=== PATIENT | female | born 1975 | race Caucasian/White ===

== ENCOUNTER 2017-12-14 16:26 | Inpatient (IN) | payer MEDICARE ==
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
[2017-12-14] MEDS ORDERED: LORazepam 1 MG TAB PO STA (17:48)
[2017-12-14 18:45] LABS: Amphetamine Screen,Urine Not Detected (NotDetected); Barbiturate Screen,Urine Not Detected (NotDetected); Benzodiazepines Screen,Urine Not Detected (NotDetected); Cocaine Screen,Urine Not Detected (NotDetected); Methadone Screen, Urine Not Detected (NotDetected); Opiate Screen,Urine Not Detected (NotDetected); Oxycodone Screen, Urine Not Detected (NotDetected); Phencyclidine Screen,Urine Not Detected (NotDetected); Tricyclic Antidepressant,Urine Not Detected (NotDetected); Urn Cannabinoid Scrn Not Detected (NotDetected)
[2017-12-14] MEDS ORDERED: IBUPROFEN 600 MG TAB PO STA (19:11)
[2017-12-14] MEDS ORDERED: NICOTINE 14MG/24HR PATCH TRANSDERM STA (21:37)
[2017-12-14 22:35] LABS: Appearance,Urine Clear (Clear); Bilirubin,Urine Negative (Negative); Blood,Urine Negative (Negative); Color,Urine Colorless; Glucose,Urine (UA) Negative (Negative); Ketones,Urine Negative (Negative); Leukocyte Esterase,Urine Negative (Negative); Nitrite,Urine Negative (Negative); Protein,Urine Negative (Negative); Specific Gravity,Urine 1.003 (1.001-1.035); Urobilinogen,Urine <2.0 mg/dL (<2.0)
[2017-12-14 22:51] LABS: Basophils # (A) 0.1 k/uL (0-0.2); Basophils % (A) 0 %; Eosinophils # (A) 0.2 k/uL (0-0.7); Eosinophils % (A) 2 %; HCT 37.6 % (34.0-46.0); HGB 12.4 gm/dL (11.4-16.0); Lymphocytes # (A) 3.9 k/uL (1.0-4.8); Lymphocytes % (A) 34 %; MCHC 33.1 g/dL (31.0-37.0); MCV 93.7 fL (80.0-100.0); Mean Platelet Volume 6.9; Monocytes # (A) 0.7 k/uL (0-1.0); Monocytes % (A) 6 %; Neutrophils # (A) 6.3 k/uL (1.3-7.7); Neutrophils % (A) 56 %; Platelet Count 316 k/uL (150-450); RBC 4.01 m/uL (3.80-5.40); RDW 14.4 % (11.5-15.5); WBC 11.3 k/uL (3.8-10.6)
[2017-12-14 23:14] LABS: Albumin 3.4 g/dL (3.5-5.0); Calcium 10.8 mg/dL (8.4-10.2); Potassium 3.8 mmol/L (3.5-5.1); Total Bilirubin 0.2 mg/dL (0.2-1.3); Total Protein 5.7 g/dL (6.3-8.2)
[2017-12-15] MEDS ORDERED: LORazepam 1 MG TAB PO STA (08:50)
[2017-12-15] MEDS ORDERED: MAGNESIUM HYDROXIDE 2,400 MG/10 ML CUP PO PRN (12:30)
[2017-12-15] MEDS ORDERED: MAG HYDROX/AL HYDROX/SIMETH 30 ML CUP PO PRN (12:30)
[2017-12-15] MEDS ORDERED: ZIPRASIDONE 20 MG VIAL IM PRN (12:30)
[2017-12-15] MEDS ORDERED: METOPROLOL TARTRATE 25 MG TAB PO STA (12:57)
[2017-12-15] MEDS: ACETAMINOPHEN TAB 325 MG TAB PO PRN ×2 (13:05→17:24)
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
[2017-12-15] MEDS ORDERED: hydrOXYzine PAMOATE 25 MG CAP PO PRN (15:48)
[2017-12-15] MEDS ORDERED: LORazepam 2 MG/ML INJ IV PRN (18:04)
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
[2017-12-15] MEDS: QUEtiapine 100 MG TAB PO SCH (20:43)
[2017-12-15] MEDS: METOPROLOL TARTRATE 25 MG TAB PO SCH (20:44)
[2017-12-15] MEDS: ATORVASTATIN 20 MG TAB PO SCH (20:44)
[2017-12-15] MEDS ORDERED: traZODone HCL 100 MG TAB PO SCH (21:00)
[2017-12-15] MEDS ORDERED: DIVALPROEX ER 500 MG TAB.ER.24H PO SCH (21:00)
[2017-12-16] MEDS: QUEtiapine 50 MG TAB PO SCH (08:59)
[2017-12-16] MEDS: METOPROLOL TARTRATE 25 MG TAB PO SCH ×2 (08:59→20:08)
[2017-12-16] MEDS: ATORVASTATIN 20 MG TAB PO SCH (08:59)
[2017-12-16] MEDS: NICOTINE 14MG/24HR PATCH TRANSDERM SCH (09:00)
--- NOTE | 2017-12-16 12:31 | P.PN ---
Progress Note - Text Progress Note Date: 12/16/17 Interval History: Patient is a 42-year-old female who was seen today, she was found in her room and came to the office. Patient states that the voices are still there and slightly decreased. Patient again cannot state what the voices are saying. She states that she still feeling suicidal and can't tell me why states she has no plan and is not sure if she wants to or not. Patient reports no side effects from the medication and states that her appetite is good. She states that she still feels depressed, with little interest to do things Mental Status: Appearance/Attitude: Patient is dressed in a hospital gown, makes intermittent eye contact and is cooperative. Behavior: Patient does not exhibit any psychomotor agitation or retardation. Speech/Language: Patient's speech is of normal rhythm and she speaks in a soft voice and is coherent Thought Process: Patient responds to questions with brief answers and little elaboration, no evidence of loose association or flight of ideas Thought Content: Patient states that she continues to hear voices and noises denies visual hallucinations, denies paranoid or delusional ideation. Patient states that she still feels depressed and suicidal, feeling tired. She states that her appetite is good Suicidal/Homicidal Ideation: Patient reports she still has suicidal thoughts with no plan can't tell me why she is feeling suicidal and denies current homicidal ideation Sensorium/Cognition: Patient is alert and oriented to person, place and time Mood/Affect: Patient's mood is apathetic and depressed her affect is blunted Insight/Judgment: Patient's insight and judgment are fair Assessment: Patient reports no side effects from the medication but continues to hear voices which she states are slightly decreased from yesterday and she states that she continues to feel suicidal with 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 Patient states she still depressed as little energy or interest to do things. She reports no side effects from the medication and its documented that the patient slept for 7 hours last night. Plan: Patient continues on Seroquel 50 mg in the morning and 150 at bedtime, her Depakote for seizure disorder with combined to a dose of 1000 mg extended release at bedtime. Patient continues to have Vistaril 25 mg 3 times a day on an as-needed basis for anxiety. Patient continues to require hospitalization to further stabilize her mood and target her psychotic symptoms.
[2017-12-16] MEDS: ACETAMINOPHEN TAB 325 MG TAB PO PRN (15:10)
[2017-12-16 19:04] LABS: Hemoglobin A1C 5.4 % (4.0-6.0)
[2017-12-16] MEDS: DIVALPROEX ER 500 MG TAB.ER.24H PO SCH (20:08)
[2017-12-16] MEDS: QUEtiapine 100 MG TAB PO SCH (20:08)
[2017-12-16] MEDS ORDERED: DIVALPROEX ER 500 MG TAB.ER.24H PO SCH (21:00)
[2017-12-17] MEDS: QUEtiapine 50 MG TAB PO SCH ×2 (09:48→14:29)
[2017-12-17] MEDS: NICOTINE 14MG/24HR PATCH TRANSDERM SCH (09:48)
[2017-12-17] MEDS: ATORVASTATIN 20 MG TAB PO SCH (09:48)
[2017-12-17] MEDS: METOPROLOL TARTRATE 25 MG TAB PO SCH ×2 (09:48→20:03)
--- NOTE | 2017-12-17 12:44 | P.PN ---
Progress Note - Text Progress Note Date: 12/17/17 Interval History: Patient is a 42-year-old female who is being seen today. Patient comes to the interview room, she states that she continues to feel depressed in the same stating that not a lot has changed. She states that she continues to have suicidal thoughts but no plan and states that she continues to have auditory hallucinations. Patient is unable to elaborate on any of her symptoms with any great detail. Patient states that she is sleeping and eating but is not attending any groups or activities. Mental Status: Appearance/Attitude: Patient is dressed in a hospital gown, makes intermittent eye contact and is cooperative Behavior: Patient does not exhibit any psychomotor agitation or retardation. Speech/Language: Patient speaks in normal volume and rhythm and she is coherent Thought Process: Patient responds to questions with brief and non-elaborative responses there is no evidence of flight of ideas or loose associations Thought Content: Patient states that she continues to hear voices and states it' s noises but can't discern what the voices are saying, denies any visual hallucinations and no delusions or paranoid ideation were elicited. Patient states that she continues to feel the same and doesn't feel a lot has changed since she was admitted. She states that she still feeling depressed and still having suicidal thoughts. Patient is sleeping and eating Suicidal/Homicidal Ideation: Patient states he continues to have suicidal thoughts but no plan or intent to act and no current homicidal ideation Sensorium/Cognition: Patient is alert and oriented to person, place, and time Mood/Affect: Patient's mood is depressed and her affect is blunted Insight/Judgment: Patient's insight and judgment are fair Assessment: Patient reports little change with the restart of her Seroquel, Depakote and Vistaril. She states that she still feels the same, still hearing voices still feeling depressed and still having suicidal thoughts. Patient is not attending groups or activities and slept for 7 hours last night. Plan: Patient will continue on Depakote 1000 mg extended release at bedtime for her seizure disorder, we'll increase her Seroquel to 50 mg twice a day and 200 mg at bedtime and continue Vistaril 25 mg as needed for anxiety. Patient will have a Depakote level drawn tomorrow morning. Patient continues to require hospitalization to further stabilize her mood and target her psychotic symptoms.
[2017-12-17] MEDS: ACETAMINOPHEN TAB 325 MG TAB PO PRN (14:29)
[2017-12-17] MEDS: DIVALPROEX ER 500 MG TAB.ER.24H PO SCH (20:03)
[2017-12-17] MEDS: QUEtiapine 200 MG TAB PO SCH (20:04)
[2017-12-18] MEDS: ATORVASTATIN 20 MG TAB PO SCH (09:19)
[2017-12-18] MEDS: METOPROLOL TARTRATE 25 MG TAB PO SCH ×2 (09:19→20:12)
[2017-12-18] MEDS: QUEtiapine 50 MG TAB PO SCH ×2 (09:19→15:35)
[2017-12-18] MEDS: NICOTINE 14MG/24HR PATCH TRANSDERM SCH (09:19)
--- NOTE | 2017-12-18 09:27 | P.PN ---
Progress Note - Text Progress Note Date: 12/18/17 Interval History: Patient is a 42-year-old female who was seen today and she reports that she is feeling a little better, but can't explain what she means by that. She states that she is not as depressed and states the voices are still there but they're better as well. She states that she is not having any suicidal thoughts and is sleeping better. She states that she is attending groups beginning yesterday. She reports no side effects from the medication. Mental Status:Appearance/Attitude: Patient is dressed in a hospital gown, makes good eye contact and is cooperative Behavior: Patient does not exhibit any psychomotor agitation or retardation. Speech/Language: Patient's speech is of normal volume and rhythm and she is coherent. Thought Process: Patient is goal-directed however her responses are non- elaborative no evidence of loose association or flight of ideas Thought Content: Patient denies any visual hallucinations states that she continues to hear voices but they are decreasing no delusions or paranoid ideation was elicited. Patient states that she is feeling a little better but cannot elaborate on what she means by that. Patient states she sleeping and eating well. Suicidal/Homicidal Ideation: Patient denies any current suicidal or homicidal ideation. Sensorium/Cognition: Patient is alert and oriented to person, place and time Mood/Affect: Patient's mood remains depressed and her affect blunted Insight/Judgment: Patient's insight and judgment are fair Assessment: Patient reports that she is feeling a little better but cannot explain what she means by that, she states the voices are decreasing and she is feeling less depressed. She reports that she sleeping and eating well. Patient slept for 6 hours last night. Patient states that she attended some groups and activities yesterday. Patient reports no side effects from the medication and feels that the increase in Seroquel is been beneficial and she is not feeling sedated during the day. Plan: Patient will continue on Seroquel 50 mg twice a day and 200 mg at bedtime , patient continues on the Depakote 1000 mg extended release at bedtime for seizure disorder and a Depakote level was obtained this morning. Patient continues to require hospitalization to further stabilize her mood
[2017-12-18] MEDS: DIVALPROEX ER 500 MG TAB.ER.24H PO SCH (20:12)
[2017-12-18] MEDS: QUEtiapine 200 MG TAB PO SCH (20:13)
[2017-12-19] MEDS: ATORVASTATIN 20 MG TAB PO SCH ×2 (09:58→14:40)
[2017-12-19] MEDS: METOPROLOL TARTRATE 25 MG TAB PO SCH ×3 (09:58→20:07)
[2017-12-19] MEDS: NICOTINE 14MG/24HR PATCH TRANSDERM SCH ×2 (09:58→14:40)
[2017-12-19] MEDS: QUEtiapine 50 MG TAB PO SCH ×2 (09:58→14:40)
--- NOTE | 2017-12-19 14:13 | P.PN ---
Progress Note - Text Progress Note Date: 12/19/17 Interval history: Patient is seen in [facility] [place]. She says that sleep and appetite are stable. She verbalizes that her mood is doing better. She inquires regarding discharge planning. She talks about a family meeting scheduled for Thursday. She does not seem to voice any adverse psychotropic medication side effects. Mental status exam: She is alert and cooperative with the interview. Her speech is fluent, not rapid or pressured. Her affect is restricted. Her mood she describes is doing better. She denies any current thoughts of harm to self or others. She denies any current auditory hallucinations. She says last time she had any auditory hallucinations was last night. She does not show any agitation. She denies any bothersome paranoid thoughts. Plan: Patient will be maintained on current psychotropic medication regimen. We 'll continue to cover this patient to the weekend. Continue to monitor for any psychotropic medication side effects and her ongoing response to treatment.
[2017-12-19] MEDS: ACETAMINOPHEN TAB 325 MG TAB PO PRN (15:26)
[2017-12-19] MEDS: QUEtiapine 200 MG TAB PO SCH (20:07)
[2017-12-19] MEDS: DIVALPROEX ER 500 MG TAB.ER.24H PO SCH (20:07)
[2017-12-20] MEDS: NICOTINE 14MG/24HR PATCH TRANSDERM SCH ×2 (09:52→15:36)
[2017-12-20] MEDS: QUEtiapine 50 MG TAB PO SCH ×2 (09:52→15:35)
[2017-12-20] MEDS: ATORVASTATIN 20 MG TAB PO SCH ×2 (09:52→15:35)
[2017-12-20] MEDS: METOPROLOL TARTRATE 25 MG TAB PO SCH ×3 (09:52→20:11)
--- NOTE | 2017-12-20 14:02 | P.PN ---
Progress Note - Text Progress Note Date: 12/20/17 Interval history: Patient reports that she didn't sleep that well last night. She has not had her meals today. She states she does plan on eating dinner. She wonders about discharge planning, says she has her family meeting scheduled for tomorrow. She describes her mood today is alright. Mental status exam: She is alert and cooperative with the interview. Her affect overall is restricted. Her mood she describes is alright. She denies any thoughts of harm to self or others. She does not verbalize any hallucinations or delusions. She does not show any agitation. Plan: Patient will be maintained on current psychotropic medication regimen. She will be monitored regarding ongoing response to treatment. Family meeting is scheduled for tomorrow per patient.
[2017-12-20] MEDS: ACETAMINOPHEN TAB 325 MG TAB PO PRN (15:36)
[2017-12-20] MEDS: DIVALPROEX ER 500 MG TAB.ER.24H PO SCH (20:10)
[2017-12-20] MEDS: QUEtiapine 200 MG TAB PO SCH (20:10)
[2017-12-21] MEDS: NICOTINE 14MG/24HR PATCH TRANSDERM SCH (09:06)
[2017-12-21] MEDS: METOPROLOL TARTRATE 25 MG TAB PO SCH ×2 (09:06→20:10)
[2017-12-21] MEDS: ATORVASTATIN 20 MG TAB PO SCH (09:06)
[2017-12-21] MEDS: QUEtiapine 50 MG TAB PO SCH ×2 (09:07→15:20)
[2017-12-21 09:09] VITALS: RESP 18
--- NOTE | 2017-12-21 10:05 | P.PN ---
Progress Note - Text Progress Note Date: 12/21/17 Interval History: Patient is a 42-year-old female who was seen today and she reports that she is feeling better not as negative. She states that she's been attending some groups and activities. She states that she is not feeling as depressed and denied having suicidal thoughts and is no longer hearing voices. Patient states that she did have multiple admissions in [place] because she wasn 't compliant with medications upon discharge. Patient denied any side effects from the medications. Mental Status: Appearance/Attitude: Patient is casually dressed, makes intermittent eye contact and was cooperative. Behavior: Patient does not exhibit any psychomotor agitation or retardation. Speech/Language: Patient's speech is of normal volume and rhythm and she is coherent Thought Process: Patient's responses are goal-directed however brief with little elaboration Thought Content: Patient denies any auditory or visual hallucinations and no delusions or paranoid ideation were elicited. Patient states that she is sleeping and eating well. She states that she is not feeling as negative and she is feeling better. Suicidal/Homicidal Ideation: Patient denied any current suicidal or homicidal ideation Sensorium/Cognition: Patient is alert and oriented to person, place, and time Mood/Affect: Patient's mood is restricted and her affect is blunted Insight/Judgment: Patient's insight and judgment are fair Assessment: Patient reports she is feeling okay, better but cannot describe it other than to say she is not as negative. She denied auditory hallucinations and states she is no longer feeling suicidal. Patient states that she is sleeping and eating and has been attending some groups and activities. She reports no side effects from her medications. Plan: Patient continues on Depakote 1000 mg extended release, her Depakote level was 56.4. Patient also continues on Seroquel 50 mg twice a day and 200 at bedtime. Patient is to have a family meeting today and will consider discharge later this week.
[2017-12-21] MEDS: DIVALPROEX ER 500 MG TAB.ER.24H PO SCH (20:10)
[2017-12-21] MEDS: QUEtiapine 200 MG TAB PO SCH (20:10)
[2017-12-22 06:41] VITALS: TEMP 98.1
[2017-12-22] MEDS: QUEtiapine 50 MG TAB PO SCH ×3 (10:17→15:58)
[2017-12-22] MEDS: NICOTINE 14MG/24HR PATCH TRANSDERM SCH ×2 (10:18→11:52)
[2017-12-22] MEDS: METOPROLOL TARTRATE 25 MG TAB PO SCH ×2 (10:18→11:52)
[2017-12-22] MEDS: ATORVASTATIN 20 MG TAB PO SCH ×2 (10:18→11:53)
--- NOTE | 2017-12-22 11:30 | P.DS ---
Providers Date of admission: 12/15/17 12:11 Expected date of discharge: 12/22/17 Attending physician: Shayla Bravo MD Consults: 12/15/17 12:30 Consult Physician Routine Consulting Provider: Delroy Mcgee Consult Reason/Comments: H&P For mental health admission Do you want consulting provider notified?: Yes Primary care physician: Stated None Hospital Course: Discharge Diagnosis: Bipolar type II disorder, current episode depressed, moderate severity with psychotic features Reason for Admission: Patient is a 42-year-old female who presented to the emergency room complaining of suicidal ideation and depression. Patient states that she has been living in [place] for the last several years and recently returned to the area to be close to family. She states that she was being seen in the psychiatric clinic there but cannot tell me the name. Patient states that she stopped her medication 2 weeks ago because she ran out. Patient states that she was hospitalized twice while she was in [place] due to stopping her medication. Patient was last hospitalized here in April 2016 and she states that shortly thereafter she moved to [place] to live with her sister. Patient states that her medications were changed recently she thinks 6 months ago but isn't sure. Patient's current medications in [place] or trazodone 20 mg at bedtime, Vistaril 25 mg 3 times a day as needed, Klonopin 0.5 mg at bedtime, Zoloft 50 mg daily and Depakote 500 mg twice a day. Patient states that she was having suicidal ideations but no plan and wanted to . She states she's been feeling depressed with a decrease in her energy level feeling nervous and worried about stuff. She states that she is not really sleeping. She states that she is not paranoid but does hear voices that are voices are talking but can't make out what people are saying. She states that she sees shadows at home. Patient states she is feeling hopeless and helpless. She states that her appetite is okay and she is been caring for her ADLs appropriately. Patient states when she returned here she's been living on her own. Patient endorses manic symptoms where she states that she has increased energy and decreased need for sleep hasn't had one for 2 years spends money with pressured speech. Patient needed a lot of prompting to give historical information and is a fair historian. Patient states her symptoms began at the age of 15 and she had a suicide attempt at that time by cutting her wrists and that was her first admission. She states that she's been treated since that time and has been on and off medications. Patient states that she thinks she had a seizure recently in [place] but can't tell me why, and is unsure of the Depakote she states he is to treat that. Patient thinks her medications were working when she was taking them but can't say for sure. Mental status on Admission: Appearance/Attitude: Patient is dressed in a hospital gown, makes good eye contact and is cooperative. Behavior: patient does not exhibit any psychomotor agitation or retardation. Speech/Language: patient's speech is spontaneous, she speaks softly and normal rhythm, patient is coherent Thought Process: patient is goal-directed although needed encouragement to elaborate on her symptoms, is a fair historian stating she can't recall much information Thought Content: patient states that she is hearing voices and noises but can't distinguish what the voices are saying, states she sees shadows, denies any paranoia or delusional ideation. Patient states that she's been feeling depressed with low energy or motivation and states that she is nervous and worried about stuff. She states that she is really not sleeping and her appetite is fine. Suicidal/Homicidal Ideation: patient states that she was having suicidal ideation with no plan and wanting to but currently is not having any suicidal thoughts and does not want to and no homicidal ideation currently. Sensorium/Cognition: patient is alert and oriented to person, place and time her recent and remote memory were grossly intact although the patient had great difficulty giving a very detailed history Mood/Affect: patient's mood is depressed her affect is blunted Insight/Judgment: patient's insight and judgment are fair Hospital Course: Patient was admitted on a voluntary basis, placed on routine observation in group and activity therapy were ordered. Patient also had a routine laboratory studies and a medical consultation. Patient and I discussed her medication response in the past and she felt that Seroquel had been the best medication for her. Patient was begun on Seroquel 50 mg in the morning and 150 mg at bedtime. Patient was also continued on her other medications for her medical problems. Patient's Seroquel was titrated to 50 mg twice a day and 200 mg at bedtime at which time the patient reported she was no longer hearing voices, no longer feeling suicidal and was not depressed. Patient spent most of the time on the unit in her room attending very few groups or activities. Patient was going to return to live on her own with her cousin providing support. A family meeting was held and her cousin felt comfortable with the patient's discharge. Patient reported no side effects from her medication. Patient was no longer reporting any suicidal thoughts, she stated she was no longer hearing voices and felt that she was doing well and requested discharge. Patient stated that she was sleeping well and eating well. She stated that she was no longer feeling as depressed and that her mood had improved. Patient reported no side effects from the medication. A Depakote level was obtained and it was within therapeutic range. Allergies No Known Allergies Allergy (Verified 12/15/17 18:16) Laboratory Last Values WBC 11.3 k/uL (3.8-10.6) H 12/14/17 22:38 RBC 4.01 m/uL (3.80-5.40) 12/14/17 22:38 Hgb 12.4 gm/dL (11.4-16.0) 12/14/17 22:38 Hct 37.6 % (34.0-46.0) 12/14/17 22:38 MCV 93.7 fL (80.0-100.0) 12/14/17 22:38 MCH 31.0 pg (25.0-35.0) 12/14/17 22:38 MCHC 33.1 g/dL (31.0-37.0) 12/14/17 22:38 RDW 14.4 % (11.5-15.5) 12/14/17 22:38 Plt Count 316 k/uL (150-450) 12/14/17 22:38 Neutrophils % 56 % 12/14/17 22:38 Lymphocytes % 34 % 12/14/17 22:38 Monocytes % 6 % 12/14/17 22:38 Eosinophils % 2 % 12/14/17 22:38 Basophils % 0 % 12/14/17 22:38 Neutrophils # 6.3 k/uL (1.3-7.7) 12/14/17 22:38 Lymphocytes # 3.9 k/uL (1.0-4.8) 12/14/17 22:38 Monocytes # 0.7 k/uL (0-1.0) 12/14/17 22:38 Eosinophils # 0.2 k/uL (0-0.7) 12/14/17 22:38 Basophils # 0.1 k/uL (0-0.2) 12/14/17 22:38 Sodium 138 mmol/L (137-145) 12/14/17 22:38 Potassium 3.8 mmol/L (3.5-5.1) 12/14/17 22:38 Chloride 110 mmol/L (98-107) H 12/14/17 22:38 Carbon Dioxide 21 mmol/L (22-30) L 12/14/17 22:38 Anion Gap 7 mmol/L 12/14/17 22:38 BUN 8 mg/dL (7-17) 12/14/17 22:38 Creatinine 1.10 mg/dL (0.52-1.04) H 12/14/17 22:38 Est GFR (CKD-EPI)AfAm 71 (>60 ml/min/1.73 sqM) 12/14/17 22:38 Est GFR (CKD-EPI)NonAf 62 (>60 ml/min/1.73 sqM) 12/14/17 22:38 Glucose 89 mg/dL (74-99) 12/14/17 22:[address] Glu mg/dL 108 12/14/17 22:38 Hemoglobin A1c 5.4 % (4.0-6.0) 12/14/17 22:38 Calcium 10.8 mg/dL (8.4-10.2) H 12/14/17 22:38 Total Bilirubin 0.2 mg/dL (0.2-1.3) 12/14/17 22:38 AST 14 U/L (14-36) 12/14/17 22:38 ALT 25 U/L (9-52) 12/14/17 22:38 Alkaline Phosphatase 75 U/L (38-126) 12/14/17 22:38 Total Protein 5.7 g/dL (6.3-8.2) L 12/14/17 22:38 Albumin 3.4 g/dL (3.5-5.0) L 12/14/17 22:38 Triglycerides 128 mg/dL (<150) 12/14/17 22:38 Cholesterol 171 mg/dL (<200) 12/14/17 22:38 LDL Cholesterol, Calc 90 mg/dL (0-99) 12/14/17 22:38 HDL Cholesterol 55 mg/dL (40-60) 12/14/17 22:38 TSH 1.040 mIU/L (0.465-4.680) 12/14/17 22:38 Urine Color Colorless 12/14/17 18:16 Urine Appearance Clear (Clear) 12/14/17 18:16 Urine pH 6.0 (5.0-8.0) 12/14/17 18:16 Ur Specific Crozier 1.003 (1.001-1.035) 12/14/17 18:16 Urine Protein Negative (Negative) 12/14/17 18:16 Urine Glucose (UA) Negative (Negative) 12/14/17 18:16 Urine Ketones Negative (Negative) 12/14/17 18:16 Urine Blood Negative (Negative) 12/14/17 18:16 Urine Nitrite Negative (Negative) 12/14/17 18:16 Urine Bilirubin Negative (Negative) 12/14/17 18:16 Urine Urobilinogen <2.0 mg/dL (<2.0) 12/14/17 18:16 Ur Leukocyte Esterase Negative (Negative) 12/14/17 18:16 Urine HCG, Qual Not Detected (Not Detectd) 12/14/17 18:16 Urine Opiates Screen Not Detected (NotDetected) 12/14/17 18:16 Ur Oxycodone Screen Not Detected (NotDetected) 12/14/17 18:16 Urine Methadone Screen Not Detected (NotDetected) 12/14/17 18:16 Ur Propoxyphene Screen Not Detected (NotDetected) 12/14/17 18:16 Ur Barbiturates Screen Not Detected (NotDetected) 12/14/17 18:16 Valproic Acid 56.4 ug/mL 12/18/17 09:16 U Tricyclic Antidepress Not Detected (NotDetected) 12/14/17 18:16 Ur Phencyclidine Scrn Not Detected (NotDetected) 12/14/17 18:16 Ur Amphetamines Screen Not Detected (NotDetected) 12/14/17 18:16 U Methamphetamines Scrn Not Detected (NotDetected) 12/14/17 18:16 U Benzodiazepines Scrn Not Detected (NotDetected) 12/14/17 18:16 Urine Cocaine Screen Not Detected (NotDetected) 12/14/17 18:16 U Marijuana (THC) Screen Not Detected (NotDetected) 12/14/17 18:16 Discharge Mental Status: Appearance/Attitude: Patient is dressed in a hospital gown, made intermittent eye contact and was cooperative. Behavior: Patient did not exhibit any psychomotor agitation or retardation Speech/Language: Patient's speech was spontaneous of normal volume and rhythm and she was coherent. Thought Process: Patient was goal-directed, no evidence of loose association or flight of ideas Thought Content: Patient denied any auditory or visual hallucinations and no delusions or paranoid ideation were elicited. Patient stated that she was doing better, not feeling as depressed and stated she had been sleeping and eating well. Suicidal/Homicidal Ideation: Patient denied any current suicidal or homicidal ideation Sensorium/Cognition: patient is alert and oriented to person, place, and time and her recent and remote memory are grossly intact Mood/Affect: patient's mood is less depressed and her affect is slightly blunted Insight/Judgment: patient's insight and judgment are fair Risk Assessment: Patient's risk for admission his high should the patient not comply with follow-up care and not comply with medications Discharge Plan: patient will return to her own home, she will follow-up at [facility] and she will continue on Seroquel 50 mg twice a day and 200 mg at bedtime. Patient will also continue on Lipitor, Depakote, Lopressor and nicotine patches. Patient will not be given a prescription for Vistaril stating that she does not use it here and did not need it. Patient will be given prescriptions for all of her medications. Patient was advised to avoid all alcohol and drugs and be compliant with her medication and follow-up care. Patient Condition at Discharge: Stable Plan - Discharge Summary Discharge Rx Participant: No New Discharge Prescriptions: New Divalproex ER [Depakote ER] 1,000 mg PO HS #56 tab.er.24h Nicotine 14Mg/24Hr Patch [Habitrol] 1 patch TRANSDERM DAILY #28 patch QUEtiapine [SEROquel] 200 mg PO HS #14 tab QUEtiapine [SEROquel] 50 mg PO 0800,1500 #28 tab Continue Ibuprofen [Motrin Ib] 200 - 400 mg PO Q6H PRN PRN Reason: Pain Atorvastatin [Lipitor] 20 mg PO DAILY #28 tab Metoprolol Tartrate [Lopressor] 25 mg PO BID #56 tab Discontinued hydrOXYzine HCL [Atarax] 25 mg PO TID Sertraline [Zoloft] 50 mg PO DAILY Divalproex ER [Depakote ER] 500 mg PO BID traZODone HCL 200 mg PO HS clonazePAM [KlonoPIN] 0.5 mg PO HS Discharge Medication List Ibuprofen [Motrin Ib] 200 - 400 mg PO Q6H PRN 12/14/17 [History] Atorvastatin [Lipitor] 20 mg PO DAILY #28 tab 12/22/17 [Rx] Divalproex ER [Depakote ER] 1,000 mg PO HS #56 tab.er.24h 12/22/17 [Rx] Metoprolol Tartrate [Lopressor] 25 mg PO BID #56 tab 12/22/17 [Rx] Nicotine 14Mg/24Hr Patch [Habitrol] 1 patch TRANSDERM DAILY #28 patch 12/22/17 [ Rx] QUEtiapine [SEROquel] 50 mg PO 0800,1500 #28 tab 12/22/17 [Rx] QUEtiapine [SEROquel] 200 mg PO HS #14 tab 12/22/17 [Rx] Follow up Appointment(s)/Referral(s): [facility] [Outside] - 12/25/17 1:00 pm (12/25/17 at 100 with Luz) [facility]] - 1 Week Patient Instructions/Handouts: How to Stop Smoking (GEN), Bipolar Disorder (DC) , Depression (DC), Brief Psychotic Disorder (DC) Activity/Diet/Wound Care/Special Instructions: Keep your follow up appointments as scheduled. Continue medications as prescribed. No alcohol or street drugs. No access to guns or weapons. Diet and activity as tolerated. Crisis line if needed . Discharge Disposition: HOME SELF-CARE
[2017-12-22 11:54] VITALS: BP 110/79; PULSE 111
== END 2017-12-22 17:30 | disposition home or self-care (01) | DRG 885 ==
LOC: EC 16:26 → 3MHU 12-15 12:11
PROVIDERS: ADMIT Psychiatry & Neurology Psychiatry; ATTEND Psychiatry & Neurology Psychiatry
DX: F31.5 Bipolar disorder, current episode depressed, severe, with psychotic features (principal); R45.851 Suicidal ideations; F17.200 Nicotine dependence, unspecified, uncomplicated; I10 Essential (primary) hypertension; M79.7 Fibromyalgia; Z91.5 Personal history of self-harm; Z79.899 Other long term (current) drug therapy; Z82.49 Family history of ischemic heart disease and other diseases of the circulatory system; Z91.19 Patient's noncompliance with other medical treatment and regimen; Z98.51 Tubal ligation status; F90.9 Attention-deficit hyperactivity disorder, unspecified type; F20.9 Schizophrenia, unspecified; F43.10 Post-traumatic stress disorder, unspecified; Z87.820 Personal history of traumatic brain injury
CPT/HCPCS: 36415; 80053; 80061; 80164; 80306; 81003; 81025; 82075; 83036; 84443; 85025; 99285